=== PATIENT | male | born 1985 | race Caucasian/White ===

== ENCOUNTER 2018-03-12 20:24 | Emergency (ER) | payer OTHER ==
[~2018-03-12] VITALS: Ht 180.3 cm; Wt 82.8 kg
[2018-03-12 20:41] VITALS: BP 127/89
[2018-03-12] MEDS ORDERED: LIDOCAINE-MPF 1%, 5ML INFIL ONE (21:00)
[2018-03-12] MEDS ORDERED: PLEASE ENTER ALLERGIES MC SCH (21:30)
== END 2018-03-12 21:41 | disposition home or self-care (01) ==
LOC: ED 21:30
DX: S01.01XA Laceration without foreign body of scalp, initial encounter (principal); V09.9XXA Pedestrian injured in unspecified transport accident, initial encounter; Y93.89 Activity, other specified; Y92.009 Unspecified place in unspecified non-institutional (private) residence as the place of occurrence of the external cause; Y99.8 Other external cause status
CPT/HCPCS: 12031; 99284